=== PATIENT | female | born 1955 | race Caucasian/White ===

== ENCOUNTER 2019-06-27 13:49 | Inpatient (IN) | payer MEDICAID, OTHER ==
[~2019-06-27] VITALS: Ht 162.6 cm; Wt 90.6 kg
[2019-06-27] MEDS ORDERED: SODIUM CHLORIDE 0.9% 1,000 ML IV ONE (14:27)
[2019-06-27 14:53] LABS: Basophils # (auto) 0 uL; Basophils % (auto) 0.4 % (0.0-2.0); Eosinophils # (auto) 0 uL; Eosinophils % (auto) 0.2 % (0.0-7.0); Hematocrit 34.1 % (36.0-46.0); Hemoglobin 11.2 g/dL (12.2-16.2); Lymphocytes # (auto) 0.7 uL; Lymphocytes % (auto) 8.4 % (10.0-50.0); Mean Corpuscular Hemoglobin 27.3 pg (28.0-32.0); Monocytes # (auto) 0.6 uL; Monocytes % (auto) 6.8 % (0.0-12.0); Neutrophils # (auto) 7.2 uL; Neutrophils % (auto) 84.2 % (37.0-80.0); Nucleated Red Blood Cells % 0.1 %; Platelet Count (auto) 622 10^3/uL (140-450); Red Blood Cells 4.11 10^6/uL (4.0-5.20); Red Cell Distribution Width 16.9 % (11.8-14.3); White Blood Cell 8.6 10^3/uL (4.4-10.8)
[2019-06-27 15:10] LABS: Albumin 3.2 g/dL (3.4-5.0); Anion Gap 6 (5-15); Blood Urea Nitrogen 16 mg/dL (7-18); Calcium 8.7 mg/dL (8.5-10.1); Carbon Dioxide 27 mmol/L (21-32); Chloride 105 mmol/L (98-107); Glucose 122 mg/dL (74-106); Magnesium 1.9 mg/dL (1.6-2.6); Potassium 3.5 mmol/L (3.5-5.1); Sodium 138 mmol/L (136-145)
[2019-06-27 15:12] LABS: Alanine Aminotransferase 12 U/L (13-56); Aspartate Aminotransferase 11 U/L (15-37); BUN/Creatinine Ratio 20.3; GFR African American 94 mL/min; GFR Non-African American 78 mL/min
[2019-06-27 15:17] LABS: Alkaline Phosphatase 68 U/L (45-117); Bilirubin, Total 0.2 mg/dL (0.2-1.0); Total Protein 8.1 g/dL (6.4-8.2)
[2019-06-27] MEDS ORDERED: ONDANSETRON HCL 4 MG/2 ML VIAL IV PRN (16:15)
[2019-06-27] MEDS ORDERED: HYDROcodone-ACET 5/325MG TAB PO PRN (16:15)
[2019-06-27] MEDS: SODIUM CHLORIDE 0.9% 1,000 ML IV SCH ×4 (16:27→21:21)
[2019-06-27 16:47] LABS: INR 1.01 (0.9-1.15); Partial Thromboplastin Time 27.8 sec (23.64-32.05)
--- NOTE | 2019-06-27 17:05 | NUR ---
Pt Arrived on Unit Pt arrived on unit via wheelchair and ambulated to bed. PT is a/ox4 with no s/s of distress or SOB. Pt has no complaints at this time. VS are the following 98.3, 142/78 BP, 93 HR, 99% O2 on RA, R 16. Will continue to monitor.
[2019-06-27 18:22] VITALS: BP 142/78
--- NOTE | 2019-06-27 19:55 | NUR ---
Opening Shift Note Assumed care of patient, awake and alert. No S/S of distress/SOB or pain. Instructed on POC and to call for assist PRN, will continue to monitor for changes Q1hr and PRN.
[2019-06-27 21:47] LABS: Urine Amorphous Crystal FEW /hpf (None Seen); Urine Bacteria FEW /hpf (None Seen); Urine Blood Negative /uL (Negative); Urine Specific Gravity 1.026 (1.001-1.035); Urine WBC 6 /hpf (0 - 5)
[2019-06-27 22:10] VITALS: BP 149/89
[2019-06-28 05:31] VITALS: BP 102/54
[2019-06-28] MEDS ORDERED: LIDOCAINE 2%HCL (LOCAL ANESTH.) INJ 20ML MDV ONE (05:59)
--- NOTE | 2019-06-28 07:30 | NUR ---
Opening Shift Note Assumed care of patient, awake, alert, and oriented x4. No S/S of distress/SOB or pain. IV is in left AC 22 gauge and is asymptomatic, intact patent and normal saline at 75 mL/hour. Bed is locked and in lowest position and call light is within reach. Instructed on POC and to call for assist PRN, and patient verbalized understanding. Will continue to monitor for changes Q1hr and PRN.
[2019-06-28] MEDS ORDERED: MIDAZOLAM HCL 1MG/1ML-2 ML VIAL IV ONE (08:00)
[2019-06-28] MEDS ORDERED: fentaNYL CITRATE 100 MCG/2 ML VL IV ONE (08:00)
--- NOTE | 2019-06-28 09:00 | NUR ---
UNABLE TO OBTAIN 0900 VITALS. PT IS NOT ON [facility] FLOOR AT THIS TIME .
--- NOTE | 2019-06-28 09:00 | NUR ---
Patient taken down to Radiology via hospital bed; no distress noted at time of departure.
--- NOTE | 2019-06-28 10:00 | NUR ---
Patient returned from Radiology, via hospital bed; no distress noted at time of arrival. Patient lying supine semi-fowlers in bed. Will continue to monitor patient Q1.
--- NOTE | 2019-06-28 11:40 | NUR ---
Dr. Nassar, Hospitalist, at bedside.
[2019-06-28 12:42] VITALS: BP 110/64
--- NOTE | 2019-06-28 16:23 | NUR ---
Received consult that patient was requesting information regarding an advanced directive. On encounter, patient was lying in bed. Advised patient of the nature of my visit, presented patient with the paperwork for an advance directive and explained how to go about having it completed and to keep the master copy, but to provid PCP and/or hospital with a copy on next encounter. She verbalized understanding.
[2019-06-28 17:00] VITALS: BP 151/87
--- NOTE | 2019-06-28 19:40 | NUR ---
Opening Shift Note Assumed care of patient, awake and alert. No S/S of distress/SOB or pain. Instructed on POC and to call for assist PRN, will continue to monitor for changes Q1hr and PRN.Help patient change gown and bedding due to being soil.
[2019-06-28 22:00] VITALS: BP 144/82
[2019-06-29 05:30] VITALS: BP 137/74
--- NOTE | 2019-06-29 08:00 | NUR ---
ASSESSMENT NOTE PATIENT IS ALERT ORIENTED X4, RESTING IN BED COMFORTABLY, GENERALIS WEAKNESS NOTED, ABLE TO VERBALIS HER DEMANDS SELF REPOSITION, PT IS INCONTINENT IN URINE, KEPT CLEAN AND DRY AT ALL TIMES, FALL RISK PRECAUTIONS, CALL LIGHT WITHIN REACH.
[2019-06-29 08:42] VITALS: BP 123/64
[2019-06-29] MEDS ORDERED: PNEUMOCOCCAL VACC POLYS 25 MCG/0.5 ML VIAL IM ONE (10:00)
[2019-06-29] MEDS ORDERED: INFLUENZA QUAD 2019-2020 0.5ml SYRG IM ONE (10:00)
--- NOTE | 2019-06-29 12:15 | NUR ---
DR JENKINS AT BED SIDE WITH DISCHARGE HOME INSTRUCTION, PAGE YAN MONSON PER DR JENKINS REQUEST TO SET UP UP FOLLOW UP APPOINTMENT
--- NOTE | 2019-06-29 13:00 | NUR ---
DR JENKINS MADE AWARE THAT PT DOES NOT STOP URINATING, URINE IS CLEAR, NO NEW ORDERS NOTED
[2019-06-29 13:31] VITALS: BP 115/60
--- NOTE | 2019-06-29 13:50 | NUR ---
CUONG MONSON IS HERE WITH PATIENT'S APPOINTMENT
--- NOTE | 2019-06-29 15:10 | NUR ---
Discharge instructions given as ordered. Encourage to follow up with PMD as instructed. All questions and concerns addressed. Patient verbalized understanding. Medication reconciliation form completed and copy given to patient. IV removed with catheter intact, pressure dressing applied.Patient taken to [facility] with all personal belongings, accompanied by staff and family member. No distress noted at time of departure.
--- NOTE | 2019-06-29 16:21 | NUR ---
assessment Per consult discharge planning. I went to patients room for my assessment. Patient had been discharged home prior to being assessed. Per Dr Nassar patient has no discharge needs. Addendum: 06/29/19 at 1622 by Ines Whittaker Amended: Links added.
== END 2019-06-29 15:15 | disposition home or self-care (01) | DRG 136 ==
LOC: ER 13:49 → EDBD 13:49 → OVERFLOW 13:50 → EAST 17:11
PROVIDERS: ADMIT Internal Medicine; ATTEND Internal Medicine
PROC: 0BBC3ZX Excision of Right Upper Lung Lobe, Percutaneous Approach, Diagnostic (ICD-10-PCS; principal; 2019-06-28)
DX: C34.11 Malignant neoplasm of upper lobe, right bronchus or lung (principal); I95.9 Hypotension, unspecified; R55 Syncope and collapse; R63.4 Abnormal weight loss; Z87.891 Personal history of nicotine dependence; Z88.5 Allergy status to narcotic agent; Z68.34 Body mass index [BMI] 34.0-34.9, adult
CPT/HCPCS: 10022; 36415; 71045; 71046; 71250; 77012; 80053; 81001; 83735; 84484; 85025; 85610; 85730; 86850; 86900; 86901; 93005; 93306; 94761; 96360; 96361; G0378; J2250